=== PATIENT | female | born 1995 | race Caucasian/White ===

== ENCOUNTER 2017-07-21 12:30 | Emergency (ER) | payer SELFPAY ==
[~2017-07-21] VITALS: Ht 170.2 cm; Wt 113.5 kg
[~2017-07-21 12:30] MED LIST: SULF1TAB47 PO
[2017-07-21 12:32] VITALS: BP 167/83; PULSE 85; RESP 20; TEMP 97.8; O2SAT 99
--- NOTE | 2017-07-21 13:21 | PD ---
HPI Chief Complaint: Back/ Neck Pain or Injury Time Seen by Provider: 13:16 Travel History International Travel<30 days: No Contact w/Intl Traveler<30days: No Traveled to known affect area: No History of Present Illness HPI 22-year-old female patient presents to the emergency department for evaluation of lower back pain. Patient the pain started yesterday, but there is no reported trauma or fall. Patient is obese with significant adipose tissue on the back. Patient has tremendous pain to palpation on her midline lower thoracic and lumbar spine. Patient denies any dysuria, fever, chills, abdominal pain, nausea, vomiting, diarrhea or incontinence of urine or stool. Patient denies any paresthesias. There is no skin abnormalities noted to the back, including erythema or ecchymosis. PFSH Past Medical History ADHD: No Autoimmune Disease: No Blood Disorders: No Anxiety: No Depression: No Cancer: No Cardiovascular Problems: No Diabetes: No Diminished Hearing: No Genitourinary: Yes (currently on abx for bladder infection) Musculoskeletal: No Neurologic: No Psychiatric: No Reproductive: Yes (OV[employer] CYSTS) Respiratory: No Immunizations Current: Yes Migraines: No Seizures: No Sickle Cell Disease: No Thyroid Disease: No Ulcer: No ?: Not LMP: 07/14/17 Past Surgical History Appendectomy: No Cholecystectomy: Yes Gynecologic Surgery: Yes (fallopian tube cyst drained) Social History Alcohol Use: No Tobacco Use: Yes (1/2 ppd) Substance Use: No Allergies-Medications (Allergen,Severity, Reaction): Coded Allergies: No Known Allergies (Verified , 07/21/17) Reported Meds & Prescriptions Reported Meds & Active Scripts Active No Active Prescriptions or Reported Medications Review of Systems Except as stated in HPI: all other systems reviewed are Neg Musculoskeletal: Positive: Pain (midline tenderness to lower thoracic and lumbar spine with palpation) Physical Exam Narrative GENERAL: Well-nourished well-developed obese 22-year-old white female in no acute distress. SKIN: Focused skin assessment warm/dry. HEAD: Atraumatic. Normocephalic. EYES: Pupils equal and round. No scleral icterus. No injection or drainage. ENT: No nasal bleeding or discharge. Mucous membranes pink and moist. NECK: Trachea midline. No JVD. CARDIOVASCULAR: Regular rate and rhythm. No murmur appreciated. RESPIRATORY: No accessory muscle use. Clear to auscultation. Breath sounds equal bilaterally. GASTROINTESTINAL: Abdomen soft, non-tender, nondistended. Hepatic and splenic margins not palpable. MUSCULOSKELETAL: No obvious deformities. No clubbing. No cyanosis. No edema. NEUROLOGICAL: Awake and alert. No obvious cranial nerve deficits. Motor grossly within normal limits. Normal speech. PSYCHIATRIC: Appropriate mood and affect; insight and judgment normal. Data Data Last Documented VS Vital Signs Date Time Temp Pulse Resp B/P (MAP) Pulse Ox O2 Delivery O2 Flow Rate FiO2 07/21/17 12:32 97.8 85 20 167/83 (111) 99 Room Air Orders Orders Spine, Thoracic-Ap/Lat/Sw(3vw) (07/21/17 13:14) Spine, Lumbar Comp W/Obliq (07/21/17 13:14) [facility] Medical Decision Making Medical Screen Exam Complete: Yes Emergency Medical Condition: Yes Medical Record Reviewed: Yes Differential Diagnosis Differential diagnoses include but are not limited to thoracic strain, lumbar strain, herniated disc, bulging disc; Ruled out cauda equina Narrative Course 22-year-old female presents to the emergency department for evaluation of lower back pain that started yesterday. Patient denies any trauma or injury. Patient denies any IV drug use, fever, chills, malaise, dysuria, abdominal pain , nausea, vomiting, diarrhea, paresthesias, chest pain, shortness breath or lightheadedness. Patient able ambulate independently. Thoracic x-ray and lumbar x-ray ordered due to tremendous midline tenderness to palpation. X-rays ordered and pending. X-ray of the lumbar spine is unremarkable X-ray of the thoracic spine shows no acute abnormality Based on patient's symptoms, physical exam, clinical presentation and imaging studies it is not necessary to admit the patient to the hospital or further evaluate patient in the emergency department. Patient will be discharged home with instructions to take Motrin [id number] as needed for pain.. Diagnosis Primary Impression: Lower back pain Qualified Codes: M54.5 - Low back pain Ruled Out: Cauda equina syndrome Patient Instructions: Acute Low Back Pain (GEN), General Instructions Additional Instructions: Take [id number] Motrin or Tylenol as needed for pain. Follow-up the primary care. Return to the emergency department for any worsening condition or emergent symptoms. Scripts No Active Prescriptions or Reported Meds Disposition: 01 DISCHARGE HOME Condition: Stable Stacy Chao Jul 21, 2017 13:21
--- NOTE | 2017-07-21 14:04 | RADRPT ---
EXAM DATE/TIME: 07/21/2017 13:45 [facility] COMPARISON: No previous studies available for comparison. INDICATIONS : Low back pain, denies injury MEDICAL HISTORY : None. SURGICAL HISTORY : None. ENCOUNTER: Initial ACUITY: >1 year PAIN SCORE: 10/10 LOCATION: Lumbar spine FINDINGS: There are five non-rib bearing vertebral bodies. The vertebral bodies are in normal alignment withou t evidence of subluxation or scoliosis. The disc spaces are maintained. The posterior elements are intact without evidence of spondylolysis. The pedicles are intact. Bony mineralization is normal. No fracture is identified. CONCLUSION: Unremarkable examination of the lumbar spine. Pollo Bran MD on July 21, 2017 at 14:02 Board Certified Radiologist. This report was verified electronically.
--- NOTE | 2017-07-21 14:04 | RADRPT ---
EXAM DATE/TIME: 07/21/2017 13:44 [facility] COMPARISON: No previous studies available for comparison. INDICATIONS : Upper back pain, denies injury MEDICAL HISTORY : None. SURGICAL HISTORY : None. ENCOUNTER: Initial ACUITY: >1 year PAIN SCORE: 9/10 LOCATION: Thoracic spine FINDINGS: There is normal alignment of the thoracic vertebral bodies. Vertebral body height is maintained. No evidence of fracture or subluxation. Pedicles are intact at all levels. The paravertebral reflecti ons are not thickened. There is a minimal scoliosis. CONCLUSION: Minimal scoliosis with no underlying bony abnormality. Pollo Bran MD on July 21, 2017 at 14:01 Board Certified Radiologist. This report was verified electronically.
== END 2017-07-21 14:52 | disposition home or self-care (01) ==
LOC: NEPK 12:30
DX: M54.5 Low back pain (principal); F17.200 Nicotine dependence, unspecified, uncomplicated
CPT/HCPCS: 72072; 72110; 99283